=== PATIENT | female | born 1990 | race Caucasian/White ===

== ENCOUNTER 2016-10-01 21:11 | Emergency (ER) | payer OTHER ==
[2016-10-01 21:20] VITALS: BP 127/81; PULSE 105; TEMP 98.6; BMI 26.2
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
== END 2016-10-01 23:35 | disposition home or self-care (01) ==
LOC: FER 21:11
DX: S09.90XA Unspecified injury of head, initial encounter (principal); V43.52XA Car driver injured in collision with other type car in traffic accident, initial encounter; Y93.89 Activity, other specified; Y92.410 Unspecified street and highway as the place of occurrence of the external cause; F17.210 Nicotine dependence, cigarettes, uncomplicated
CPT/HCPCS: 70450-TC; 84703; 99281-25

== ENCOUNTER 2017-03-31 11:02 | Emergency (ER) | payer OTHER ==
--- NOTE | 2017-03-31 11:29 | PDOC ---
History of Present Illness - General Chief Complaint: Cold Symptoms Stated Complaint: COUGH Time Seen by Provider: 03/31/17 11:03 History Source: Patient Exam Limitations: No Limitations - History of Present Illness Initial Comments: 03/31/17 11:24 26 y/o female with cough congestion for several days. Daughter sick as well. Became dizzy today and thinks she may be dehydrated. No weakness or numbness. No fever or chills. Vomited today. No diarrhea. Drinking fluids. No SOB or chest pain. Past History - Past Medical History Allergies/Adverse Reactions: Allergies Allergy/AdvReac Type Severity Reaction Status Date / Time No Known Allergies Allergy Verified 03/31/17 11:43 Home Medications: Ambulatory Orders Amoxicillin - [Amoxicillin 875mg Tablet -] 875 mg PO BID #20 tablet 03/31/17 Control 3 Year 03/31/17 Ondansetron [Zofran Odt -] 4 mg SL TID #10 od.tablet 03/31/17 - Reproductive History (#): 3 Para: 1 Ectopic : No Therapeutic (s) & number: No Spontaneous : 1 - Immunization History Td Vaccination: Yes Immunization Up to Date: (UNSURE) - Suicide/Smoking/Psychosocial Hx Smoking Status: Yes Smoking History: Current every day smoker Number of Cigarettes Smoked Daily: 4 'Breaking Loose' booklet given: 10/01/16 Hx Alcohol Use: Yes Substance Use Type: Alcohol Review of Systems - Review of Systems Able to Perform ROS?: Yes Is the patient limited Pashto proficient: No Constitutional: Yes: Symptoms Reported, See HPI. No: Chills, Fever HEENTM: No: Mouth Swelling Respiratory: Yes: Cough Cardiac (ROS): No: Chest Pain ABD/GI: No: Diarrhea, Nausea, Vomiting : No: Dysuria Musculoskeletal: No: Back Pain Integumentary: No: Pruritus, Rash Neurological: Yes: Dizziness All Other Systems: Reviewed and Negative *Physical Exam - Physical Exam General Appearance: Yes: Nourished, Appropriately Dressed. No: Apparent Distress HEENT: positive: EOMI, GARRETT, Normal ENT Inspection, Normal Voice, Pharynx Normal , Other (sinus pressure b/l in frontal and maxillary). negative: TMs Normal ( fluid b/l, no erythema) Neck: positive: Trachea midline, Normal Thyroid, Supple. negative: Tender, Rigid, Carotid bruit Respiratory/Chest: positive: Lungs Clear, Normal Breath Sounds. negative: Chest Tender, Respiratory Distress, Accessory Muscle Use Cardiovascular: positive: Regular Rhythm, Regular Rate, S1, S2. negative: Edema , JVD, Murmur Vascular Pulses: Femoral (R): 4+, Femoral (L): 4+, Carotid (R): 4+, Carotid (L) : 4+, Dorsalis-Pedis (R): 4+, Doralis-Pedis (L): 4+ Gastrointestinal/Abdominal: positive: Normal Bowel Sounds, Flat, Soft. negative : Tender, Organomegaly, Pulsatile Mass Lymphatic: negative: Adenopathy, Tenderness, Other Musculoskeletal: positive: Normal Inspection. negative: CVA Tenderness Extremity: positive: Normal Capillary Refill, Normal Inspection, Normal Range of Motion. negative: Tender Integumentary: positive: Normal Color, Dry, Warm Neurologic: positive: filter helper II-XII NML intact, Fully Oriented, Alert, Normal Mood/ Affect, Normal Response, Motor Strength 5/5, Other (strength 5+/5 b/l in UE and LE, no focal deficits noted, no sign of dehydration, lips moist) Progress Note - Progress Note Progress Note: Pt appears to have a sinus infection, no dehydration seen Will treat with Zofran and Amoxicillin If worsen return to ER Pt is in agreement with plan Pt ambulating, smiling in NAD on discharge. *DC/Admit/Observation/Transfer Diagnosis at time of Disposition: Sinusitis Qualifiers: Sinusitis location: other Chronicity: acute Recurrence: not specified as recurrent Qualified Code(s): J01.80 - Other acute sinusitis; J01.80 - Other acute sinusitis Eustachian tube dysfunction Qualifiers: Laterality: bilateral Qualified Code(s): H69.83 - Other specified disorders of Eustachian tube, bilateral; H69.83 - Other specified disorders of Eustachian tube, bilateral - Discharge Dispostion Disposition: HOME Condition at time of disposition: Good Admit: No - Patient Instructions Printed Discharge Instructions: DI for Sinusitis Additional Instructions: Fluids, rest, Motrin Amoxicillin 875 mg 2x/day for 10 days Zofran 4 mg ODT 1 tab every 8 hr as needed If worsen return to ER
[2017-03-31] MEDS ORDERED: ONDANSETRON *ODT* 4 MG TABLET SL ONE (11:30)
[2017-03-31 11:41] VITALS: BP 106/55; PULSE 77; TEMP 98.5; BMI 25.2
[2017-03-31] MEDS ORDERED: ONDANSETRON *ODT* 4 MG TABLET ONE (12:21)
== END 2017-03-31 12:27 | disposition home or self-care (01) ==
LOC: FER 11:02
DX: J01.80 Other acute sinusitis (principal); H69.83 Other specified disorders of Eustachian tube, bilateral; F17.210 Nicotine dependence, cigarettes, uncomplicated
CPT/HCPCS: 99282-25

== ENCOUNTER 2022-02-18 21:06 | Emergency (ER) | payer OTHER ==
[2022-02-18 21:12] VITALS: BMI 26.2
[2022-02-18] MEDS ORDERED: KETOROLAC TROMETHAMINE 30 MG/1 ML VIAL IM ONE (22:15)
[2022-02-18 22:18] LABS: EPI CELLS >36 /uL (0-25.1); HCG,QUALITATIVE URINE Negative; HYALINE CASTS 1 /uL (0-3.1); PH,URINE 5.5 (5.0-8.0); URINE APPEARANCE CLEAR; URINE BACTERIA 670 /uL (0-1359); URINE BILIRUBIN NEGATIVE (NEGATIVE); URINE COLOR DK YELLOW; URINE GLUCOSE (UA) NEGATIVE (NEGATIVE); URINE KETONE TRACE (NEGATIVE); URINE LEUK ESTERASE NEGATIVE (NEGATIVE); URINE NITRITE NEGATIVE (NEGATIVE); URINE PROTEIN NEGATIVE (NEGATIVE); URINE RBC 41 /uL (0-23.9); URINE UROBILINOGEN 0.2 mg/dL (0.2-1.0); URINE WBC 6 /uL (0-25.8)
[2022-02-18] MEDS ORDERED: KETOROLAC TROMETHAMINE 30 MG/1 ML VIAL ONE (22:27)
[2022-02-19] MEDS ORDERED: ACETAMINOPHEN 1000 MG/100 ML BAG IVPB ONE (00:09)
[2022-02-19] MEDS ORDERED: ACETAMINOPHEN INJECTION 100 ML IVPB ONE (00:15)
[2022-02-19] MEDS ORDERED: ACETAMINOPHEN 325 MG TABLET (FP) PO ONE (00:29)
[2022-02-19] MEDS ORDERED: ACETAMINOPHEN 325 MG TABLET (FP) ONE (00:30)
[2022-02-19 00:48] LABS: BASO % 0.6 % (0-2.0); EOS % 2.1 % (0-4.5); HEMATOCRIT 41.6 % (32.4-45.2); HEMOGLOBIN 14.6 GM/dL (10.7-15.3); LYMPH % 51.7 % (8-40); MCH 32.6 pg (25.7-33.7); MCHC 35.1 g/dl (32.0-36.0); MEAN CELL VOLUME 92.9 fl (80-96); MEAN PLT VOLUME 7.6 fl (7.5-11.1); MONO % 5.2 % (3.8-10.2); NEUT % 40.4 % (42.8-82.8); PLATELET COUNT 322 10^3/uL (134-434); RBC 4.48 M/mm3 (3.60-5.2); RDW 12.9 % (11.6-15.6); WHITE BLOOD COUNT 6.2 K/mm3 (4.0-10.0)
[2022-02-19 00:51] VITALS: BP 125/79; PULSE 97; RESP 16; TEMP 98.1
[2022-02-19 01:15] LABS: ALBUMIN 3.9 g/dl (3.4-5.0); BLOOD UREA NITROGEN 7.1 mg/dL (7-18)
[2022-02-19 01:18] LABS: CREATININE 0.8 mg/dL (0.55-1.3)
[2022-02-19 01:20] LABS: BILIRUBIN,TOTAL 0.4 mg/dL (0.2-1); TOT PROT 7.4 g/dl (6.4-8.2)
== END 2022-02-19 00:59 | disposition home or self-care (01) ==
LOC: JER 21:06
PROC: 3E0233Z Introduction of Anti-inflammatory into Muscle, Percutaneous Approach (ICD-10-PCS; principal; 2022-02-18)
PROC: 3E033NZ Introduction of Analgesics, Hypnotics, Sedatives into Peripheral Vein, Percutaneous Approach (ICD-10-PCS; 2022-02-19)
DX: R10.2 Pelvic and perineal pain (principal)
CPT/HCPCS: 36415; 76830-TC; 80053; 81003; 84703; 85025; 87086; 87491; 87591; 87661; 99285-25